=== PATIENT | female | born 1955 | race Caucasian/White ===

== ENCOUNTER 2016-09-21 17:06 | Emergency (ER) | payer OTHER ==
[~2016-09-21] VITALS: Ht 152.4 cm; Wt 54.9 kg
[~2016-09-21 17:06] MED LIST: AMLODIPINE BESYL5 M1 PO; ASPIRIN81 M4 PO; BMP; CARBAMAZEPINE200 M6 PO; CARBATROL200 MG PO; CARVEDILOL25 M1 PO; LEVOTHYROXINE112 MCG PO; LIPITOR20 M2 PO; LOSARTAN POTAS100 M1 PO; TEGRETOL XR200 M1 PO; TYLENOL WITH C1 EACH PO
[2016-09-21 19:52] LABS: ABSOLUTE BASOPHIL COUNT 0 /CUMM (0.0-0.2); ABSOLUTE EOSINOPHIL COUNT 0.2 /CUMM (0.0-0.7); ABSOLUTE GRANULOCYTE CT 5.8 /CUMM (1.4-6.5); ABSOLUTE LYMPH COUNT 1.8 /CUMM (1.2-3.4); ABSOLUTE MONOCYTE COUNT 0.7 /CUMM (0.10-0.60); BASOPHIL % 0.5 % (0.0-2.0); EOSINOPHIL % 2.5 % (0-5); GRANULOCYTE % 68.3 % (42.2-75.2); HEMATOCRIT 40.9 % (37-47); MEAN CORPUSCULAR HGB 32.6 PG (27.0-31.0); MEAN CORPUSCULAR HGB CONC 33.8 G/DL (33.0-37.0); MEAN CORPUSCULAR VOLUME 96.5 FL (81.0-99.0); MEAN PLATELET VOLUME 6.9 FL (7.4-10.4); PLATELET COUNT 430 /CUMM (130-400); RBC DISTRIBUTION WIDTH 13.7 % (11.5-14.5); RED BLOOD CELL CT 4.24 /CUMM (4.20-5.40); WHITE BLOOD CELL COUNT 8.4 /CUMM (4.8-10.8)
--- NOTE | 2016-09-21 19:58 | ED GENERAL ADULT ---
History of Present Illness General Chief Complaint: General Adult Stated Complaint: PER PT SODIUM LEVELS ARE LOW (126 PER PT) Source: patient Exam Limitations: no limitations Vital Signs & Intake/Output Vital Signs & Intake/Output Vital Signs Date Time Temp Pulse Resp B/P Pulse O2 O2 Flow FiO2 Ox Delivery Rate 09/21 1803 98.3 75 18 168/97 96 Room Air Allergies Coded Allergies: No Known Allergies (05/31/16) Reconcile Medications Amlodipine Besylate 5 MG TABLET 1 TAB PO BID HTN (Reported) Aspirin (Aspirin*) 81 MG TAB.CHEW 1 TAB PO DAILY HEART HEALTH Atorvastatin Calcium (Lipitor) 20 MG TABLET 1 TAB PO DAILY HIGH CHOLESTROL [BMP] 0 DX:CHRONIC HYPONATREMIA 08/01/16 SODIUM: 126 07/27/16 SODIUM: 131 Carbamazepine 200 MG CPMP.12HR 2 CAP PO QPM SEIZURES (Reported) Carbamazepine 200 MG CPMP.12HR 1 CAP PO QAM SEIZURES Carvedilol 25 MG TABLET 0.5 TAB PO BID BP (Reported) Levothyroxine Sodium 112 MCG TABLET 1 TAB PO DAILY THYROID (Reported) Losartan Potassium 100 MG TABLET 1 TAB PO DAILY BP (Reported) Triage Note: PT STATES HER SODIUM LEVEL IS 126. HAD BLOOD DRWAN YESTERDAY. C/O "NOT FEELING RIGHT" IS ON TEGRETOL 200 MG XR 1 IN AM AND 2 @ HS. Triage Nurses Notes Reviewed? yes Onset: Gradual Duration: intermittent (8 MONTHS) Timing: recent history Injury Environment: home Severity: moderate Severity Numbers: 5 No Modifying Factors: none HPI: Patient is a 61-year-old female presenting to the emergency department because her blood the sodium level was low. She reports that she's been dealing with low sodium levels over the past 8 months. She sees a ortho tech tomorrow for the first time for further evaluation. She was put on a fluid restriction. She reports that she feels symptoms if her sodium level drops below 126. Denies any current nausea vomiting fevers or chills. Her daughter reports that she gets confused at first blood sodium level drops below 126. She reports that she's been a symptom today but received a phone call from her primary care physician telling her that her sodium level is 126. She did report intermittent malaise over the past couple days. No nausea or vomiting. No diarrhea. She's been trying to drink Gatorade to help with the sodium levels. (STEVEN SUN) Past History Travel History Traveled to [place] past 21 day No Medical History Any Pertinent Medical History? 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 No (STEVEN SUN) Review of Systems Review of Systems Constitutional: Reports: malaise. Comments Review of systems: See HPI, All other systems negative. Constitutional, no chills fever or weight loss HEENT: No visual changes no sore throat no congestion Cardiovascular: No chest pain ,palpitation , orthopnea or ankle swelling Skin, no jaundice no rashes Respiratory: No dyspnea cough sputum or hemoptysis GI: No nausea no vomiting : No dysuria No hematuria Muscle skeletal: no back pain, no neck pain, Neurologic: No numbness no confusion Psych: No stress anxiety or depression,. Heme/endocrine: No bruising no bleeding Immunology: No splenectomy or history of AIDS (STEVEN SUN) Physical Exam Physical Exam General Appearance: well developed/nourished, no apparent distress, alert, awake , comfortable Comments: Well-developed well-nourished person in no acute distress HEENT: Normal EENT exam, extraocular motion intact, no nystagmus. Pupils equally round and reactive to light and accommodation. Nose is atraumatic. Pharynx normal. No swelling or edema. Neck: Supple, no lymphadenopathy, normal range of motion without pain or tenderness Back: Nontender Cardiovascular: Regular rate and rhythms no murmurs rubs or gallops, normal JVP Respiratory: Chest nontender. No respiratory distress.breath sounds clear to auscultation bilaterally Abdomen: Soft, nontender nondistended, no appreciable organomegaly. Normal bowel sounds. No ascites Extremity: No edema Neuro: Alert oriented x3, motor sensory normal, cranial nerves II through XII grossly intact. Cerebellar testing unremarkable. Skin: No appreciable rash on exposed skin, skin is warm and dry. Psych: Mood and affect is normal, memory and judgment is normal. Core Measures ACS in differential dx? No CVA/TIA Diagnosis: No Severe Sepsis Present: No Septic Shock Present: No (STEVEN SUN) Progress Differential Diagnoses I considered the following diagnoses in my evaluation of the patient: Diabetes insipidus, SI ADH, hyponatremia, pseudohyponatremia Plan of Care: Orders Procedure Date/time Status Add-on Test (ER Only) 09/21 2056 Active URINE LYTES, SPOT 09/21 1949 Complete URINALYSIS 09/21 1926 Complete COMPREHENSIVE METABOLIC PANEL 09/21 1926 Complete CBC WITHOUT DIFFERENTIAL 09/21 1926 Complete EKG 09/21 1926 Active Laboratory Tests 09/21/161949: Urine Color YEL, Urine Clarity CLEAR, Urine pH 6.5, Ur Specific [place] 1.015, Urine Protein NEG, Urine Ketones NEG, Urine Nitrite POS H, Urine Bilirubin NEG, Urine Urobilinogen 0.2, Ur Leukocyte Esterase NEG, Ur Microscopic SEDIMENT EXAMINED, Urine RBC 1-3, Ur Epithelial Cells RARE, Urine Hemoglobin SMALL H, Urine Glucose NEG 09/21/161949: Ur Random Creatinine 49.7, Ur Random Sodium 144 H, Ur Random Potassium 38.1, Fraction Sodium Excret 1.5 H 09/21/161934: Anion Gap 10, Estimated GFR > 60, BUN/Creatinine Ratio 18.6, Glucose 108 H, Calcium 8.7, Total Bilirubin 0.4, AST 29, ALT 33, Alkaline Phosphatase 155 H, Total Protein 7.3, Albumin 4.5, Globulin 2.8, Albumin/Globulin Ratio 1.6, CBC w Diff NO MAN DIFF REQ, RBC 4.24, MCV 96.5, MCH 32.6 H, RDW 13.7, MPV 6.9 L, Gran % 68.3, Lymphocytes % 20.9, Monocytes % 7.8, Eosinophils % 2.5, Basophils % 0.5, Absolute Granulocytes 5.8, Absolute Lymphocytes 1.8, Absolute Monocytes 0.7 H, Absolute Eosinophils 0.2, Absolute Basophils 0, PUBS MCHC 33.8 Initial ED EKG: NSR (68 BPM) Comments: On repeat CMP sodium levels 131. Patient is asymptomatic and exam is benign. Patient received 1 L IV normal saline which should help increase serum sodium level. Patient follow PCP in 2 days for sodium truck. She was advised to return for any worsening symptoms or concerns. She is spilling sodium into the urine. She was informed of this and will follow up with nephrology as scheduled for tomorrow. (STEVEN SUN) Departure Departure Time of Disposition: 2123 Disposition: HOME OR SELF CARE Condition: Stable Clinical Impression Primary Impression: Hyponatremia Referrals: COLEMAN BUCHANAN MD (PCP/Family) Additional Instructions: Follow-up with your primary care physician in the next 2-3 days for recheck of a sodium level. Continue to limit your fluid intake. Try eating saltines here in there to help with sodium level. Return if he develop any confusion worsening symptoms or concerns. Her sodium level today was 131. Departure Forms: Customer Survey General Discharge Information (STEVEN SUN) PA/MOTOR VEHICLE DISPATCHER Co-Sign Statement Statement: ED Attending supervision documentation- [] I saw and evaluated the patient. I have also reviewed all the pertinent lab results and diagnostic results. I agree with the findings and the plan of care as documented in the PA's/MOTOR VEHICLE DISPATCHER's documentation. [X] I have reviewed the ED Record and agree with the PA's/MOTOR VEHICLE DISPATCHER's documentation. [] Additions or exceptions (if any) to the PAs/MOTOR VEHICLE DISPATCHER's note and plan are summarized below: [] (JOSE JOE,DMITRY) Critical Care Note Critical Care Note Critical Care Time: non-applicable (STEVEN SUN)
[2016-09-21 21:49] VITALS: BP 159/78
== END 2016-09-21 21:52 ==
LOC: ERH 17:06
PROVIDERS: Emergency Medicine
DX: E87.1 Hypo-osmolality and hyponatremia (principal)
CPT/HCPCS: 84133; 84300; 81001; 82570; 93005; 93010; 96360

== ENCOUNTER 2016-10-03 14:56 | Observation (INO) | payer OTHER ==
[~2016-10-03] VITALS: Ht 152.4 cm; Wt 54.9 kg
--- NOTE | 2016-10-03 15:04 | NUR ---
PT TO ED C/O ? LOW SODIUM LEVELS. PT STATES SHE "FEELS OFF". HER DAUGHTER STATES SHE WAS CONFUSED THIS AM. PT WAS SEEN IN ED FOR SAME ON 09/21, SODIUM WAS 131. PT DENIES ANY PAIN.
--- NOTE | 2016-10-03 16:18 | NUR ---
APPRECIATE TRIAGE NOTE. PT AMBULATORY TO ROOM 16. AWAITING PROVIDER EVAL.
--- NOTE | 2016-10-03 16:36 | NUR ---
TAYLA JOHNSON TO BEDSIDE FOR EVAL. DURING EKG PT HAD EPISODE OF FACIAL TWITCHING WITH BLANK STARE REPORTED BY [facility]ST.
--- NOTE | 2016-10-03 16:40 | NUR ---
PT ASSISTED TO BEDSIDE COMMODE REQUIRING REPEATED VERBAL CUES AND REDIRECTION FOR SIMPLE TASKS. PT APPEARS CONFUSED AT THIS TIME, PER DAUGHTER THIS WAS SIMILAR TO EPISODE EARLIER TODAY.
--- NOTE | 2016-10-03 16:41 | ED AMS/SEIZURE/WEAK/DIZZY ---
See Addendum History of Present Illness General Chief Complaint: General Adult Stated Complaint: ?ABNORMAL SODIUM LEVEL PER PT Source: patient, family Exam Limitations: no limitations Vital Signs & Intake/Output Vital Signs & Intake/Output Vital Signs Date Time Temp Pulse Resp B/P Pulse O2 O2 Flow FiO2 Ox Delivery Rate 10/04 0545 98.6 82 18 145/70 97 Room Air 10/03 2112 98.8 71 18 164/82 95 Room Air 10/03 1757 98.6 79 18 164/84 98 Room Air 10/03 1501 98.4 94 20 156/91 99 Room Air ED Intake and Output 10/04 0000 10/03 1200 Intake Total Output Total Balance Patient 121 lb Weight Allergies Coded Allergies: No Known Allergies (05/31/16) Reconcile Medications Amlodipine Besylate 5 MG TABLET 1 TAB PO BID HTN (Reported) Aspirin (Aspirin*) 81 MG TAB.CHEW 1 TAB PO DAILY HEART HEALTH Atorvastatin Calcium (Lipitor) 20 MG TABLET 1 TAB PO DAILY HIGH CHOLESTROL Carbamazepine 200 MG CPMP.12HR 2 CAP PO QPM SEIZURES (Reported) Carbamazepine 200 MG CPMP.12HR 1 CAP PO QAM SEIZURES Carvedilol 25 MG TABLET 0.5 TAB PO BID BP (Reported) Furosemide 20 MG TABLET 1 TAB PO BID DIURETIC (Reported) Levothyroxine Sodium 112 MCG TABLET 1 TAB PO DAILY THYROID (Reported) Losartan Potassium 100 MG TABLET 1 TAB PO DAILY BP (Reported) Sodium Chloride 1 GRAM TABLET 1 TAB PO TID SODIUM (Reported) Triage Note: PT TO ED C/O ? LOW SODIUM LEVELS. PT STATES SHE "FEELS OFF". HER DAUGHTER STATES SHE WAS CONFUSED THIS AM. PT WAS SEEN IN ED FOR SAME ON 09/21, SODIUM WAS 131. PT DENIES ANY PAIN. Triage Nurses Notes Reviewed? yes Onset: Abrupt Duration: better Timing: recent history Severity: severe Severity Numbers: 7 No Modifying Factors: none HPI: Patient is a 61-year-old female with past medical history of hypothyroidism, hypertension, seizure disorder currently on Tegretol and which daughter states that patient was in her normal state of health today at 1400 and then brought patient in to the emergency room for concerns of intermittent confusion and nonverbal unresponsiveness episodes. Daughter states that patient had similar presentation last admission due to sodium of 122. Patient currently is taking sodium supplementation. Daughter denies any slurred speech facial droop or unilateral weakness. Patient currently denies any symptoms upon the initial evaluation Denies any illicit drug use denies any new medications denies any fever, chills, headache blurred vision However when discussing with patient she states that she does not know she remembers the episodes that were occurring earlier today per the history of the daughter. Patient also has been evaluated recently for similar eventsher in emergency room with unremarkable findings (CHELSI BENOIT) Past History Travel History Traveled to [place] past 21 day No Medical History Any Pertinent Medical History? 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 No (CHELSI BENOIT) Review of Systems Review of Systems Constitutional: Reports: no symptoms. EENTM: Reports: no symptoms. Respiratory: Reports: no symptoms. Cardiovascular: Reports: no symptoms. GI: Reports: no symptoms. Genitourinary: Reports: no symptoms. Musculoskeletal: Reports: no symptoms. Skin: Reports: no symptoms. Neurological/Psychological: Reports: see HPI. Hematologic/Endocrine: Reports: no symptoms. Immunologic/Allergic: Reports: no symptoms. All Other Systems: Reviewed and Negative (CHELSI BENOIT) Physical Exam Physical Exam General Appearance: no apparent distress, alert, comfortable Comments: Well-developed well-nourished person in no acute distress HEENT: Normal EENT exam, extraocular motion intact, no nystagmus. Pupils equally round and reactive to light and accommodation. Nose is atraumatic. External auditory canal and Tympanic membranes clear. Pharynx normal. No swelling or edema. Neck: Supple, no lymphadenopathy, normal range of motion without pain or tenderness Back: Nontender, no CVA tenderness. Cardiovascular: Regular rate and rhythms no murmurs rubs or gallops, normal JVP Respiratory: Chest nontender. No respiratory distress.breath sounds clear to auscultation bilaterally Abdomen: Soft, nontender nondistended, no appreciable organomegaly. Normal bowel sounds. No ascites Extremity: No edema, no calf tenderness to palpation, normal and equal pulses. Neuro: Alert oriented x3, motor sensory normal, cranial nerves II through XII grossly intact. Skin: No appreciable rash on exposed skin, skin is warm and dry. Psych: Mood and affect is normal, memory and judgment is normal. Core Measures ACS in differential dx? No CVA/TIA Diagnosis: No Severe Sepsis Present: No Septic Shock Present: No (ALEX BOURNE,CHELSI) Progress Differential Diagnosis: arrythmia, alcohol intoxication, anemia, benign positional vertigo, CVA/stroke, dehydration, drug intoxication, encephalitis, electrolyte imbalance, GI bleed, hypoglycemia, hypoxia, intracranial Hem., intracranial mass/tumor, labrynthitis, meningitis, Meniere's disease, migraine VALERO, multiple sclerosis, pneumonia, postural hypotension, presyncope, post- traumatic vertigo, sepsis, seizure disorder, subarachnoid Hem., UTI/pyelo, vertebrobasilar insuff Plan of Care: Orders Procedure Date/time Status Regular Diet 10/04 B Active BASIC METABOLIC PANEL 10/[address] in observation 10/03 2016 Active Patient Data 10/03 2016 Active Code Status 10/03 2016 Active Add-on Test (ER Only) 10/03 1737 Active ETHANOL 10/03 1717 Complete CULTURE,URINE 10/03 1707 Active URINE OSMOLALITY 10/03 1643 Complete URINE LYTES, SPOT 10/03 1643 Complete TROPONIN LEVEL 10/03 1643 Complete SERUM OSMOLALITY 10/03 1643 Complete CARBAMAZEPINE 10/03 1643 Complete URINE DRUG SCREEN FOR ER ONLY 10/03 1642 Complete AMMONIA 10/03 1642 Complete LACTIC ACID 10/03 1642 Complete Telemetry/Online Journalist 10/03 1640 Active EKG 10/03 1620 Active Intake & Output 10/03 1619 Active URINALYSIS 10/03 1619 Complete THYROID STIMULATING HORMONE 10/03 161 Complete MAGNESIUM 10/03 1619 Complete FREE T4 10/03 1619 Complete COMPREHENSIVE METABOLIC PANEL 10/03 1619 Complete CBC WITHOUT DIFFERENTIAL 10/03 1619 Complete Laboratory Tests 10/04/16 0613: Anion Gap 7, Estimated GFR > 60, BUN/Creatinine Ratio 17.1, Glucose 93, Calcium 8.4 10/03/16 1942: Lactic Acid Cancelled 10/03/16 1717: Serum Osmolality 272 L, Troponin I < 0.01 10/03/161716: Lactic Acid 0.8, Ammonia < 9 L, Serum Alcohol < 10.0 10/03/161716: Anion Gap 10, Estimated GFR > 60, BUN/Creatinine Ratio 17.5, Glucose 116 H, Calcium 8.7, Magnesium 1.7, Total Bilirubin 0.5, AST 30, ALT 35, Alkaline Phosphatase 162 H, Total Protein 6.9, Albumin 4.3, Globulin 2.6, Albumin/ Globulin Ratio 1.7, TSH 7.930 H, Free T4 1.25, CBC w Diff NO MAN DIFF REQ, RBC 4.24, MCV 95.5, MCH 32.8 H, RDW 13.6, MPV 7.0 L, Gran % 75.2, Lymphocytes % 18.3 L, Monocytes % 5.9, Eosinophils % 0.3, Basophils % 0.3, Absolute Granulocytes 5.4, Absolute Lymphocytes 1.3, Absolute Monocytes 0.4, Absolute Eosinophils 0, Absolute Basophils 0, PUBS MCHC 34.4, Carbamazepine 12.4 H 10/03/161706: Urine Color STRAW, Urine Clarity CLEAR, Urine pH 6.0, Ur Specific [place] 1.010, Urine Protein NEG, Urine Ketones NEG, Urine Nitrite NEG, Urine Bilirubin NEG, Urine Urobilinogen 0.2, Ur Leukocyte Esterase NEG, Ur Microscopic SEDIMENT EXAMINED, Urine RBC RARE, Ur Epithelial Cells RARE, Urine Bacteria MOD H, Urine Hemoglobin SMALL H, Urine Glucose NEG 10/03/161706: Urine Opiates Screen < 100.00, Methadone Screen < 40, Barbiturate Screen < 60, Ur Phencyclidine Scrn < 6.00, Amphetamines Screen < 100, U Benzodiazepines Scrn < 85, Urine Cocaine Screen < 50, Urine Cannabis Screen < 5.00, Urine Osmolality 350, Ur Random Creatinine 29.0, Ur Random Sodium 101 H, Ur Random Potassium 25.7, Fraction Sodium Excret 2.2 H Microbiology 10/03 1706 URINE ROUT: Urine Culture - RECD On initial examination patient was in no apparent distress and has unremarkable physical exam findings. It was noted however during the EKG which was witnessed by me and staff the patient had an episode of right-sided eye and facial twitching and left hand tremulous activity only. When discussing with patient to get a verbal response she was not responding for approximately 20 seconds. However she states he mildly can remember the episode that just occurred. This was also witnessed by daughter who has never seen this activity. This activity was not seen earlier today Patient was checked on multiple occasions in the emergency room and had no exacerbation of this symptom or sign. Patient had essentially unremarkable blood work EKG and CT scan of head. I discussed disposition and plan with Dr. Jc who we advised the patient will be admitted to the emergency room observation for frequent neurological checks repeat labs since slow fluid IV resuscitation. The other daughter who then came later during patient's emergency room visit states that the patient did not remember all events yesterday as well and was adamantly upset that the sodium was normal and patient was still having the symptoms on occasion prior to evaluation today Dr. Jc and I had a long discussion with patient and family member about disposition plan and they agree and had no concerns prior to admission to ER observation NIH STROKE SCALE 0 (CHELSI BENOIT) Diagnostic Imaging: Viewed by Me: CT Scan. Radiology Impression: no acute abnormality Initial ED EKG: SINUS TACHYCARDIA 113 BPM Comments: PATIENT: CAMERON LOCK PRESENT AGE: 61 PATIENT ACCOUNT NO: [id number] : 55 LOCATION: [facility] ORDERING PHYSICIAN: CHELSI BOURNE SERVICE DATE: 10/03/16 EXAM TYPE: CAT - CT HEAD WO IV CONTRAST EXAMINATION: CT HEAD WITHOUT CONTRAST CLINICAL INFORMATION: Altered mental status COMPARISON: CT of head 05/31/2016 TECHNIQUE: Contiguous axial imaging was performed from the skull base to vertex without intravenous administration of contrast. DLP: 529.16 mGy-cm FINDINGS: There is no evidence of acute intracranial hemorrhage or territorial infarction. No abnormal mass effect or midline shift is seen. Godwin to white matter differentiation is well preserved. No extra-axial fluid collections are identified. There is vascular wall calcification of the internal carotid arteries at the carotid artery siphon bilaterally. The ventricles are normal in size. There is no abnormal attenuation within the brain parenchyma. The osseous structures and soft tissues are normal. The mastoid air cells and visualized portions of the paranasal sinuses are well aerated. IMPRESSION: No acute intracranial pathology. (CHELSI BENOIT) Departure Departure Disposition: STILL A PATIENT Condition: Stable Clinical Impression Primary Impression: Altered mental state Referrals: COLEMAN BUCHANAN MD (PCP/Family) Departure Forms: Customer Survey General Discharge Information (CHELSI BENOIT) Departure Additional Instructions: FOLLOW UP WITH DR. BUCHANAN FOR FURTHER WORK UP TRY NOT TO DRINK TO MUCH "FREE WATER" (FLUIDS THAT DO NOT HAVE ELECTROLYTES IN THEM.) TRY TO DRINK NO MORE THAN 1.2L PER DAY RETURN IF SYMPTOMS WORSEN OR FOR ANY CONCERNS (RADHA JOE,BRENDEN Evangelista) ED Attending Observation Initial Observation Note: I have seen and personally examined CAMERON LOCK on 10/03/16 at 2317. I agree with the current emergency department documentation. The disposition (admission or discharge) is uncertain at this time, she needs a period of observation for the following reason(s): The ED Nurse caring for this patient has been personally informed as to what the patient is being observed for. (CHELSI BENOIT) Initial Observation Note: I have seen and personally examined CAMERON LOCK on 10/03/16 at 2018. I agree with the current emergency department documentation. The disposition (admission or discharge) is uncertain at this time, she needs a period of observation for the following reason(s): [Patient is still confused and she had tonic-clonic activity in her left arm and the right side of her face when she first came into the emergency department. Patient has hyponatremia sodium is lower than it normally runs for her. Patient will require frequent neuro checks and repeat sodium level in the morning. It is possible that this is.paralysis however if her mental status does not improve she will require a neuro consultation.] The ED Nurse caring for this patient has been personally informed as to what the patient is being observed for. Observation Re-Evaluation: I have reevaluated CAMERON LOCK on 10/04/16 at 0146. The physical findings that support the continued need to observe this patient include [PT IS SLEEPING COMFORTABLY. NO MORE EPISODES OF CONFUSION. WILL CONTINUE TO MONITOR. LUNGS CTA B/L, CARDIAC RRR.]. 10/04/2016 6:33:26 AM: Patient is awake alert and oriented. Patient is asking all that all questions and is participating in the discussion. There are no signs of delirium. Awaiting her repeat BMP. If her sodium level remains alert was earlier or even higher the patient will be stable for discharge. 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 Observation Discharge: I have reevaluated CAMERON LOCK on 10/04/16 at 0643. The patient is: ([X]): Stable for discharge (): To be admitted to Nursing Floor (): To be placed in Observation on Nursing Floor (): For transfer to other facility The patient was being observed for As a result of that observation, I have determined . (RADHA JOE,BRENDEN Evangelista)
--- NOTE | 2016-10-03 17:06 | NUR ---
PT CONTINUES AT CAT SCAN VIA STRETCHER.
--- NOTE | 2016-10-03 17:13 | CT SCAN REPORT ---
EXAMINATION: CT HEAD WITHOUT CONTRAST CLINICAL INFORMATION: Altered mental status COMPARISON: CT of head 05/31/2016 TECHNIQUE: Contiguous axial imaging was performed from the skull base to vertex without intravenous administration of contrast. DLP: 529.16 mGy-cm FINDINGS: There is no evidence of acute intracranial hemorrhage or territorial infarction. No abnormal mass effect or midline shift is seen. Godwin to white matter differentiation is well preserved. No extra-axial fluid collections are identified. There is vascular wall calcification of the internal carotid arteries at the carotid artery siphon bilaterally. The ventricles are normal in size. There is no abnormal attenuation within the brain parenchyma. The osseous structures and soft tissues are normal. The mastoid air cells and visualized portions of the paranasal sinuses are well aerated. IMPRESSION: No acute intracranial pathology.
[2016-10-03 18:02] LABS: ABSOLUTE BASOPHIL COUNT 0 /CUMM (0.0-0.2); ABSOLUTE EOSINOPHIL COUNT 0 /CUMM (0.0-0.7); ABSOLUTE GRANULOCYTE CT 5.4 /CUMM (1.4-6.5); ABSOLUTE LYMPH COUNT 1.3 /CUMM (1.2-3.4); ABSOLUTE MONOCYTE COUNT 0.4 /CUMM (0.10-0.60); BASOPHIL % 0.3 % (0.0-2.0); EOSINOPHIL % 0.3 % (0-5); GRANULOCYTE % 75.2 % (42.2-75.2); HEMATOCRIT 40.5 % (37-47); MEAN CORPUSCULAR HGB 32.8 PG (27.0-31.0); MEAN CORPUSCULAR HGB CONC 34.4 G/DL (33.0-37.0); MEAN CORPUSCULAR VOLUME 95.5 FL (81.0-99.0); PLATELET COUNT 412 /CUMM (130-400); RBC DISTRIBUTION WIDTH 13.6 % (11.5-14.5); RED BLOOD CELL CT 4.24 /CUMM (4.20-5.40); WHITE BLOOD CELL COUNT 7.2 /CUMM (4.8-10.8)
--- NOTE | 2016-10-03 18:58 | NUR ---
TAYLA JOHNSON TO BEDSIDE TO DISCUSS RESULTS AND POC.
--- NOTE | 2016-10-03 19:02 | NUR ---
PT MEDICATED WITH MOTRIN 600MG PER EMAR FOR C/O HEADACHE.
--- NOTE | 2016-10-03 19:35 | NUR ---
PT DAUGHTERS REQUESTING FOOD FOR PT. PT IS SLOW TO RESPOND TO QUESTIONS REGARDING WHAT TYPE OF FOOD SHE PREFERS. PT SITTING ON STRETCHER WITH EYES OPEN BUT BLANK STARE ON HER FACE FOR APPROXIMATELY 20-30 SECONDS. PT FINALLY ABLE TO ANSWER THAT SHE DOES NOT FEEL VERY HUNGRY AT THIS TIME. NURSING WILL CONTINUE TO MONITOR.
[2016-10-03] MEDS ORDERED: FUROSEMIDE20 M1 PO (20:15)
[2016-10-03] MEDS ORDERED: SODIUM CHLORIDE1 G2 PO (20:16)
--- NOTE | 2016-10-03 20:17 | NUR ---
PT PLACED IN ED OBSERVATION AT THIS TIME, INFORMED WAITING PERFORMED.
--- NOTE | 2016-10-03 20:31 | NUR ---
DR. GARCIA TO BEDSIDE TO [facility] PT.
--- NOTE | 2016-10-03 22:20 | NUR ---
LINE EST #22 TO LEFT HAND. NS HUNG AT 75ML/HR AT THIS TIME. PT ALERT AND ORIENTED X3, INTERACTING IN CONVERSATION WITH THIS RN, NO DEFICITS NOTED AT THIS TIME.
--- NOTE | 2016-10-03 23:00 | NUR ---
THIS RN INTRODUCES SELF TO PT. PT ALERT AND ORIENTED AT THIS TIME, JOINING IN CONVERSATION AND RESPONDING APPROPRIATELY.
--- NOTE | 2016-10-04 00:17 | NUR ---
PT RESTING ON BED. NO APPARENT DISTRESS NOTED. NORMAL RR NOTED.
--- NOTE | 2016-10-04 02:02 | NUR ---
PT CONTINUES TO REST ON BED. NORMAL RR NOTED. WILL CONTINUE TO MONITOR.
--- NOTE | 2016-10-04 05:35 | NUR ---
PT AWAKENED FOR REPEAT SST BLOOD DRAW. PT ALERT AND ORIENTED. STATES THAT SHE FEEKS WELL RESTED.
--- NOTE | 2016-10-04 05:41 | NUR ---
PT STATES "I HAVE TO USE THE BATHROOM, I USED THE COMMODE YESTERDAY, I CAN DO THAT AGAIN." PT ABLE TO RISE FROM STRETCHER AND GET TO COMMODE WITHOUT ANY ASSISTANCE.
--- NOTE | 2016-10-04 05:43 | NUR ---
PT ABLE TO COMMUNICATE THAT SHE IS DONE WITH COMMODE. PT WIPES UP AND GETS BACK ON BED WITHOUT ANY ASSISTANCE. PT REALIZES THAT HER PHONE IS NOT CHARGED AND ASKS FOR HELP WITH THE STORAGE CONSULTANT.
--- NOTE | 2016-10-04 06:17 | NUR ---
REPEAT SST REQUESTED FROM LAB. SST REDRAWN AND SENT TO LAB.
--- NOTE | 2016-10-04 06:46 | NUR ---
PT CALLING FAMILY FOR RIDE HOME.
--- NOTE | 2016-10-04 07:04 | NUR ---
PT CLEARED FOR DISCHARGE. INSTRUCTIONS GIVEN, PT VERBALIZED UNDERSTANDING. WILL RETURN IF SYMPTOMS WORSEN.
--- NOTE | 2016-10-04 07:13 | NUR ---
CARE ASSUMED BY THIS RN NOW. PT AWAKE AND ON CELL PHONE, COMMUNICATING APPROPRIATELY. AWAITING DAUGHTER TO PICK PT UP.
[2016-10-04 07:18] VITALS: BP 132/72
== END 2016-10-04 07:48 ==
LOC: ENRESERVDT → ENRESERVTM → ERH 14:56 → ERHI 20:17
PROVIDERS: Physician Assistant; ADMIT Emergency Medicine
DX: E87.1 Hypo-osmolality and hyponatremia (principal); E03.9 Hypothyroidism, unspecified; I10 Essential (primary) hypertension; R56.9 Unspecified convulsions
CPT/HCPCS: 6090; 84133; 84300; 80307; 81001; 82570; 87086; 93005; 93010; G0378; G0480